=== PATIENT | male | born 1980 | race Caucasian/White ===

== ENCOUNTER 2018-06-14 02:00 | Emergency (ER) | payer SELFPAY ==
[~2018-06-14] VITALS: Ht 167.6 cm; Wt 89.0 kg
[2018-06-14] MEDS ORDERED: MECLIZINE 25MG TABLET PO ONE (02:30)
[2018-06-14] MEDS ORDERED: ZIPRASIDONE HCL 40MG CAPSULE PO ONE (02:45)
[2018-06-14 02:54] LABS: BASOPHILS % 0.5 % (0.0-2.0); EOSINOPHILS % 3.2 % (0.0-5.0); HEMATOCRIT. 44.7 % (42.0-52.0); HEMOGLOBIN. 15.4 g/dL (14.0-18.0); LYMPHOCYTES % 34.6 % (20.0-50.0); MEAN CORPUSCULAR HEMOGLOBIN 33.4 pg (28.0-32.0); MONOCYTES % 6.8 % (2.0-8.0); NEUTROPHILS % 54.9 % (40.0-76.0); PLATELET 151 x1000/uL (130-400); RED BLOOD CELL COUNT 4.61 mill/uL (4.7-6.1); RED CELL DISTRIBUTION WIDTH 13.6 % (11.6-14.6)
[2018-06-14 02:58] LABS: CHLORIDE 106 mEq/L (98-107)
[2018-06-14 03:40] VITALS: BP 148/92
== END 2018-06-14 03:40 | disposition home or self-care (01) ==
LOC: ER 02:00
DX: R42 Dizziness and giddiness (principal); F31.9 Bipolar disorder, unspecified; I10 Essential (primary) hypertension; E11.9 Type 2 diabetes mellitus without complications; F17.210 Nicotine dependence, cigarettes, uncomplicated
CPT/HCPCS: 36415; 71045; 80053; 85025; 93005; 99284; J8597